=== PATIENT | female | born 1950 | race Caucasian/White ===

== ENCOUNTER 2017-01-12 11:38 | Inpatient (IN) ==
[2017-01-12] MEDS ORDERED: *HR* OxyCODONE/APAP 5/325 TABLET PO ONE ×2 (11:49→14:19)
--- NOTE | 2017-01-12 12:02 | Emergency Department Note ---
Disposition Clinical Impression: Fracture Humerus head fracture Qualifiers: Encounter type: initial encounter Fracture type: closed Laterality: left Qualified Code(s): S42.292A - Other displaced fracture of upper end of left humerus, initial encounter for closed fracture Disposition: Admitted As Inpatient Condition: Good Time of Disposition: 14:05 General Adult HPI - General Chief complaint: ED Fall Stated complaint: fall Time Seen by Provider: 01/12/17 11:45 Source: patient, EMS Limitations: no limitations Nursing Notes Reviewed: Yes Vital Signs Reviewed: Yes - History of Present Illness HPI Narrative: She sustained a mechanical fall today. She denies any loss of consciousness or striking her head. She has no neck or back pain. She is complaining of left shoulder pain as well as left wrist pain left ankle pain. Denies being on any kind of anticoagulants. There are no alleviating or provoking factors. Pain Scale: 9 - Related Data Home Medications Medication Instructions Recorded Confirmed Albuterol Neb [Proventil Neb] 2.5 mg IH Q4HR 01/12/17 01/12/17 Fluticasone/Salmeterol [Advair 1 puff IH BID 01/12/17 01/12/17 500-50 Diskus] Insulin ASPART [NovoLOG] 10 unit SQ TIDWM 01/12/17 01/12/17 Insulin DETEMIR [Levemir] 12 unit SQ HS 01/12/17 01/12/17 Ipratropium Neb [Atrovent Neb] 0.5 mg IH Q6HR PRN 01/12/17 01/12/17 Ipratropium/Albuterol Sulfate 1 puff IH QID PRN 01/12/17 01/12/17 [Combivent Respimat Inhal [place]] PredniSONE [Deltasone] 40 mg PO DAILY 01/12/17 01/12/17 Ranitidine HCl [Acid [place]] 150 mg PO BID 01/12/17 01/12/17 Allergies Allergy/AdvReac Type Severity Reaction Status Date / Time aspirin Allergy Difficulty Verified 11/23/16 16:31 Breathing bacitracin Allergy Rash Verified 01/12/17 16:43 budesonide [From Pulmicort] Allergy Redness of Verified 11/23/16 16:31 Skin Penicillins Allergy Rash Verified 01/12/17 16:43 polymyxin B Allergy Rash Verified 01/12/17 16:43 povidone-iodine Allergy Rash Verified 01/12/17 16:43 [From Betadine] promethazine [From Phenergan] Allergy Confusion Verified 11/23/16 16:31 soap [From Betadine] Allergy Redness of Verified 11/23/16 16:31 Skin Sulfa (Sulfonamide Allergy Rash Verified 11/23/16 16:31 Antibiotics) guaifenesin AdvReac Blurry Verified 01/12/17 16:43 Vision All systems ED: reviewed and negative except as stated. Constitutional: Denies: fever, chills, weakness Eyes: Denies: eye pain, vision change ENT ED: Denies: ear pain, dental pain, epistaxis Cardiovascular: Reports: edema (Chronic lymphedema of lower extremities.). Denies: chest pain, palpitations, dyspnea on exertion, syncope Respiratory: Denies: cough, dyspnea Gastrointestinal: Denies: abdominal pain, nausea, vomiting Genitourinary: Denies: urgency, dysuria, frequency, hematuria Musculoskeletal: Reports: joint swelling (Patient reports left ankle swelling.) , other (Painful left shoulder, left wrist, and left ankle.). Denies: back pain , neck pain Integumentary: Denies: rash, abrasion Neurological: Denies: headache, weakness, numbness, paresthesias Past Medical History - Past Medical History Attestation: Yes The following information was validated with the patient. Medical history: Reports: asthma, diabetes, hyperlipidemia, hypertension, thyroid disease Surgical history: Reports: cataract, cholecystectomy, thyroidectomy Psychiatric history: Reports: no psych history SERVICER history: Reports: other - Social History Smoking Status: Never smoker Smokeless Tobacco Status: No Alcohol use: Reports: none Drug use: Reports: none Physical Exam - General Limitations: no limitations General appearance: alert, in distress (Mild distress due to pain.) - Head Head exam: atraumatic, normocephalic, normal inspection - Eye Eye exam: Present: normal appearance, PERRL, EOMI. Absent: scleral icterus - ENT ENT exam: normal exam, normal oropharynx, mucous membranes moist, normal external ear exam - Neck Neck exam: Present: normal inspection, full ROM, trachea midline. Absent: tenderness, meningismus, lymphadenopathy - Chest Chest inspection: Present: normal inspection, symmetric chest wall rise. Absent : tenderness, rash - Respiratory Respiratory exam: Present: normal lung sounds bilaterally. Absent: respiratory distress - Cardiovascular Cardiovascular exam: Present: regular rate, normal rhythm, normal heart sounds - Abdominal Exam Abdominal exam: Present: soft, Non-Tender, normal bowel sounds. Absent: tenderness, distention, guarding, rebound, rigidity, organomegaly - Expanded Upper Extremity Exam Shoulder exam: Present: tenderness (To left shoulder. On palpation). Absent: swelling, abrasion, ecchymosis, deformity, crepitus, dislocation, erythema Arm exam: Present: normal inspection, full ROM, tenderness (Palpation.). Absent : swelling, abrasion, laceration, ecchymosis, deformity Elbow exam: Present: normal inspection, full ROM. Absent: tenderness, swelling , abrasion, laceration, ecchymosis, deformity, crepitus, erythema Forearm/Wrist exam: Present: normal inspection, full ROM, tenderness (2 palpation and movement). Absent: abrasion, laceration, ecchymosis, deformity, crepitus, erythema Hand exam: Present: normal inspection, full ROM. Absent: tenderness, swelling, abrasion, laceration, ecchymosis, deformity, crepitus - Expanded Lower Extremity Exam Hip/Pelvis exam: Present: normal inspection, full ROM Upper leg exam: Present: normal inspection, full ROM Knee exam: Present: normal inspection, full ROM Lower leg exam: Present: normal inspection, full ROM Ankle exam: Present: normal inspection, full ROM, tenderness, other (Patient has severe lymphedema to both lower extremities. There is no increase in swelling to the left side versus the right. There is pain in her left ankle.). Absent: swelling (Palpation), abrasion, laceration, ecchymosis, deformity, crepitus, dislocation, erythema, tenderness over talofibular lig, anterior draw sign Foot/toe exam: Present: normal inspection, full ROM Neurovascular/Tendon exam: Absent: motor deficit, sensory deficit, tendon deficit - Back Exam Back exam: Present: normal inspection, full ROM. Absent: tenderness, CVA tenderness (R), CVA tenderness (L), paraspinal tenderness, vertebral tenderness - Neurological Exam Neurological exam: Present: alert, oriented X3. Absent: motor sensory deficit - Psychiatric Psychiatric exam: Present: normal affect, normal mood - Skin Skin exam: Present: warm, dry, intact, normal color. Absent: rash, cyanosis, erythema Course Course Narrative: Female patient resting Bailee Marc by EMS. She states that she had a mechanical fall this morning. She was walking on her porch she noticed one of the boards had come up on the porch and she tripped over it. She fell and struck her left shoulder and left hand and left ankle. She denies striking her head. She has no head or neck pain. She is not on anticoagulation. There is no loss of consciousness. There are no external signs of trauma. There is no crepitus or deformity to any of her extremities. She does report pain to her left shoulder left wrist and left ankle. She has full motion of both of her hips without pain on palpation or pain to movement. We will x-ray her left shoulder left forearm left humerus and left hand as well as her left ankle. She does have bilateral lymphedema that she states is chronic. I do not notice a significance of increased swelling of one ankle versus the other. She has strong pedal pulses bilaterally. She has strong radial pulses bilaterally. Her lung sounds are clear her abdomen is soft and nontender. She has no trauma to her head or neck. There is no pain on palpation of either of these. She is acting appropriately and in mild distress due to the pain that she reports in her shoulder. We will give her pain medication while she is here and x-ray her extremities. - Reevaluation(s) Reevaluation #1: Patient has an acute fracture of her medial malleolus and lateral malleolus of her left ankle. She also has acute fracture left humerus that is nondisplaced impacted of her left humeral head. We have consulted Dr. Butler. We will admit patient. She states she is in no pain when she is not moving her shoulder. She is comfortable at this time. She is agreeable to admission. Time: 14:03 - Consultations Consultation #1: Spoke with Dr Ocasio. He advises to splint the patient and admit her to medicine. He states he will see her for her humeral fracture and talk to Dr. napoles about her ankle fracture. Time: 14:02 Vital Signs Temperature 97.6 F 01/12/17 11:42 Pulse Rate 65 01/12/17 11:42 Respiratory Rate 18 01/12/17 11:42 Blood Pressure 108/95 01/12/17 11:42 O2 Sat by Pulse Oximetry 99 01/12/17 11:42 Temperature 97.4 F L 01/12/17 16:24 Pulse Rate 73 01/12/17 16:24 Respiratory Rate 18 01/12/17 18:45 Blood Pressure 110/64 01/12/17 16:24 O2 Sat by Pulse Oximetry 95 01/12/17 18:45 Oxygen Delivery Oxygen Delivery Room Air Medical Decision Making - Medical Records Medical records reviewed: Yes I reviewed the patient's medical records. - Lab Data Result diagrams: 01/12/17 18:34 01/12/17 18:34 - Radiology Data Radiology results reviewed: Yes I reviewed the patient's radiology results. Attestation Statement - Attestation Attestation: I examined this patient and my medical decision-making was reviewed with the CYCLE LIAISON/PA/Advanced Practice Nurse/Resident Physician. I agree with the documented findings, disposition and treatment plan as described except to the extent set forth below. 58-year-old female presents ED because of injuries from a fall. She had a mechanical fall landing on her left side injuring her shoulder and ankle. Complains of pain mostly in the shoulder and ankle. No injury to her head or neck. No chest or abdominal pain. No loss of consciousness. No dyspnea. Pleasant female in no apparent distress. She is uncomfortable with moderate pain. Oropharynx is clear. Trachea midline chest is clear to auscultation bilateral. Neck is nontender to palpation. Abdomen soft non-distended, non- tender. Pelvis is stable and nontender. She has moderate tenderness along the proximal left humerus as well as the medial and lateral malleolus of the left ankle. Dorsal pedal pulses are intact. X-rays reveal fracture of the left lateral and medial malleolus of left ankle. She also has a fracture of the proximal left humerus. There are no other history of findings. She will be unable to bear weight on the left ankle and will likely require surgical repair. However, she is unable to use other means of ambulation due to left humerus fracture. The decision was made to admit her to the hospital for surgical correction of the ankle and probable placement into an extended care facility until she can regain ambulation.
[2017-01-12] MEDS ORDERED: *HR* HYDROmorphone (PF) 1 MG/ML SYRINGE IVP PRN (16:44)
[2017-01-12] MEDS ORDERED: Naloxone 0.4 MG/ML INJ IVP PRN (16:44)
[2017-01-12] MEDS ORDERED: Ondansetron 4 MG/2 ML VIAL IVP PRN (16:44)
[2017-01-12] MEDS ORDERED: Dextrose Gel 15 GM PO PRN ×2 (16:48)
[2017-01-12] MEDS ORDERED: D5% in Water 1,000 ML IV PRN (16:48)
[2017-01-12] MEDS ORDERED: *HR* Dextrose 50 % in Water (Syg) 50 ML SYRINGE IVP PRN (16:48)
--- NOTE | 2017-01-12 16:53 | Internal Med History&Physical ---
Date of Encounter: 01/12/17 Time of Encounter: 15:45 Internal Medicine - H&P: HPI Chief complaint: left shoulder and left ankle pain, nausea after a mechanical fall. Admitted From: Emergency Dept Plans for Post Hospital Care: Transfer [facility] Facility History of present illness: Ms. Gu is a 66 year old female wit medical history significant for chronic corticosteroid use due to severe asthma, resultant osteoporosis, multiple orthopedic procedure due to osteopenia-related fractures, chronic bilateral lympedema, hyperparathyroidism, presents with left shoulder and ankle pain after a mechanical fall. XR confirm, transmaleolar fracture of left ankle and impacted proximal femoral fracture. No neck/back pain pain, no loss of consciousness, no headaches, she did no hit her head, no retrograde or anterograde amnesia, no blurry vision or visual loss, no epistaxis, or bleeding from any orifice. She nausea reports nausea after receiving oxycodone for pain control. She is not on anticoagulation. She is FULL CODE as per discussion, but does not want to be maintained in chronic vegetative state. She nominates her daughter, Francheska Fairbanks ([phone]) as her NOK/POA. ROS: A 10 point ROS was performed. see HPI. Positives and relevant negatives are detailed, system-symptom not mention assumed negative unless otherwise stated. Family history: Father: DM2/CVA, mother: DM2/ atrial fibrillation, TIA/HTN, bother: lung cancer, daughter: fibromyalgia, DM2, epilepsy, obesity, HTN. Vital Signs Temperature 97.6 F 01/12/17 11:42 Pulse Rate 65 01/12/17 11:42 Respiratory Rate 18 01/12/17 11:42 Blood Pressure 108/95 01/12/17 11:42 O2 Sat by Pulse Oximetry 99 01/12/17 11:42 Temperature 97.6 F 01/12/17 11:42 Pulse Rate 72 01/12/17 14:30 Respiratory Rate 18 01/12/17 14:30 Blood Pressure 134/80 01/12/17 14:30 O2 Sat by Pulse Oximetry 97 01/12/17 14:30 In mild distress from pain, not ill or toxic looking. left shoulder in a sling Not pale, anicteric, afebrile, acyanotic. Moist mucosa, no JVD HEENT: No JVD, no cervical lymphadenopathy, Chest : CTAB Heart: RRR, HS1/2, no m/r/g. Abdomen: soft, non-tender, no guarding, no rebound, no masses, BS+ : no suprapubic tenderness. 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 Skin: no active skin lesion Extremities: Left lower extremity in a below knee splint, she is able to wriggle toes of left foot, good capillary, left arm in a sling, strapped across chest. She is able to wriggle the fingers of the left hand. Non-pitting pedal edema of right lower leg (lymphedema)- no calf tenderness in same leg, left lower leg in a splint. LABS: Not done Skeletal survey: impacted proximal humeral fracture (left humerus), transmaleolar fracture (left ankle). old ORIF to right wrist. IMP Mechanical fall Impacted proximal left humeral fracture Trans-maleolar fracture of left ankle. Chronic morbidities Osteopenia/osteoporosis, related to chronic corticosteroid use. Asthma/COPD, moderate-severe intermittent Corticosteroid dependence Hyperparathyroidism DM2 on insulin Chronic lymphedema of lower extremities. PLAN Admit to [facility] Optimal pain control Consult hand surgeon and crystal report developer Continue medication of chronic orbidities DVT/GI prophylaxis Consult PT/OT and social sciences professor. I discussed my assessment with the patient, her daughter was at bedside, they verbalized understanding and are agreeable to admission. Hospitalization required due to acute fractures. She will need placement for rehabilitation Past Med Surg Social Fam HX - Past Medical History Medical history: asthma, diabetes, hyperlipidemia, hypertension, thyroid disease Psychiatric history: no psych history - Past Surgical History Surgical History: cataract, cholecystectomy, thyroidectomy - Social History Smoking Status: Never smoker Smokeless Tobacco Status: No Alcohol use: none Drug use: none Internal Medicine - H&P: Meds Albuterol Neb [Proventil Neb] 2.5 mg IH Q4HR 01/12/17 [History] Fluticasone/Salmeterol [Advair 500-50 Diskus] 1 puff IH BID 01/12/17 [History] Insulin ASPART [NovoLOG] 10 unit SQ TIDWM 01/12/17 [History] Insulin DETEMIR [Levemir] 12 unit SQ HS 01/12/17 [History] Ipratropium Neb [Atrovent Neb] 0.5 mg IH Q6HR PRN 01/12/17 [History] Ipratropium/Albuterol Sulfate [Combivent Respimat Inhal [place]] 1 puff IH QID PRN 01/12/17 [History] PredniSONE [Deltasone] 40 mg PO DAILY 01/12/17 [History] Ranitidine HCl [Acid Munitions Handler Supervisor] 150 mg PO BID 01/12/17 [History] Allergies aspirin Allergy (Verified 11/23/16 16:31) Difficulty Breathing bacitracin Allergy (Verified 01/12/17 16:43) Rash budesonide [From Pulmicort] Allergy (Verified 11/23/16 16:31) Redness of Skin Penicillins Allergy (Verified 01/12/17 16:43) Rash polymyxin B Allergy (Verified 01/12/17 16:43) Rash povidone-iodine [From Betadine] Allergy (Verified 01/12/17 16:43) Rash promethazine [From Phenergan] Allergy (Verified 11/23/16 16:31) Confusion soap [From Betadine] Allergy (Verified 11/23/16 16:31) Redness of Skin Sulfa (Sulfonamide Antibiotics) Allergy (Verified 11/23/16 16:31) Rash guaifenesin Adverse Reaction (Verified 01/12/17 16:43) Blurry Vision All Systems PM: A 10-system review of systems was performed and is negative for pertinent findings except as documented above in the HPI. - Constitutional Vitals: Temp Pulse Resp BP Pulse Ox 97.4 F L 73 18 110/64 93 L 01/12/17 16:24 01/12/17 16:24 01/12/17 16:24 01/12/17 16:24 01/12/17 16:24
[2017-01-12 18:42] LABS: Basophils # 0.1 K/mcL (0.0-0.2); Basophils % 0.3 %; Eosinophils # 0.1 K/mcL (0.0-0.6); Eosinophils % 0.3 %; Hematocrit 43.9 % (35.3-44.9); Hemoglobin 14.1 g/dL (11.5-15.4); Immature Granulocytes % 0.4 % (0-4); Immature Platelets 3.5 % (1.1-6.1); Lymphocytes % 6.5 %; Mean Corpuscular HGB Conc 32.1 g/dL (31.6-35.5); Mean Corpuscular Hemoglobin 30.7 pg (28.0-33.3); Mean Corpuscular Volume 95.4 fL (83.0-100.0); Monocytes % 6.6 %; Neutrophils # 12.5 K/mcL (1.6-8.9); Platelet Count 217 K/mcL (140-400); Red Cell Distribution Width 13.1 % (11.5-14.5); Segmented Neutrophils % 85.9 %
[2017-01-12] MEDS: Ipratropium/Albuterol Neb 3 ML IH PRN (18:45)
[2017-01-12 18:56] LABS: BUN/Creatinine Ratio 21 (6-26); Blood Urea Nitrogen 14 mg/dL (7-20); Calcium 9.8 mg/dL (8.6-10.8); Carbon Dioxide 20 mEq/L (19-29); Chloride 109 mEq/L (98-109); Glucose 216 mg/dL (70-99); Osmolality,Calculated 293 (280-300); Potassium 4.2 mEq/L (3.5-4.5); Sodium 138 mEq/L (136-145); eGFR For African Americans > 60 (> 60); eGFR For Non-African Americans > 60 (> 60)
[2017-01-12] MEDS: Insulin LISPRO 300 UNITS/3 ML VIAL SQ SCH ×2 (19:53→22:20)
[2017-01-12] MEDS: *HR* OxyCODONE Immed Rel 5 MG TABLET PO PRN (20:00)
[2017-01-12] MEDS: Insulin DETEMIR 100 UNIT/ML X5UNITS SQ SCH (22:20)
[2017-01-12] MEDS: Acetaminophen 325 MG TABLET PO PRN (22:20)
[2017-01-12] MEDS: Famotidine 20 MG TABLET PO SCH (22:20)
[2017-01-12] MEDS: FLUTICASONE IH SCH (22:21)
[2017-01-12] MEDS: SALMETEROL IH SCH (22:21)
[2017-01-13] MEDS: *HR* OxyCODONE Immed Rel 5 MG TABLET PO PRN ×3 (02:01→18:49)
[2017-01-13] MEDS: Ipratropium/Albuterol Neb 3 ML IH PRN ×3 (02:25→21:31)
[2017-01-13] MEDS: Acetaminophen 325 MG TABLET PO PRN ×3 (06:12→21:20)
[2017-01-13] MEDS: *HR* Enoxaparin 40 MG/0.4 ML SYRINGE SQ SCH (06:12)
[2017-01-13] MEDS: FLUTICASONE IH SCH ×2 (08:49→21:15)
[2017-01-13] MEDS: Insulin LISPRO 300 UNITS/3 ML VIAL SQ SCH ×7 (08:49→21:14)
[2017-01-13] MEDS: SALMETEROL IH SCH ×2 (08:49→21:15)
[2017-01-13] MEDS: predniSONE 20 MG TABLET PO SCH (08:50)
[2017-01-13] MEDS: Famotidine 20 MG TABLET PO SCH ×2 (08:50→21:14)
--- NOTE | 2017-01-13 16:43 | Orthopedic Consult Note ---
Date of Encounter: 01/13/17 Time of Encounter: 12:45 Assessment and Plan (1) Humerus head fracture Current Visit: Yes Status: Acute Fracture is non-operative at this time. Continue in sling with no shoulder motion and NWB to LUE. Continue pain control per hospitalist. Dr. Goss will not be doing surgery on the left ankle fracture. Refer to his note for further management. Patient is to follow up with sport medicine in [facility] office in 1 week for the left humerus and left ankle fractures. Qualifiers: Encounter type: initial encounter Fracture type: closed Laterality: left Qualified Code(s): S42.292A - Other displaced fracture of upper end of left humerus, initial encounter for closed fracture History of Present Illness Chief complaint: left arm pain HPI: Ms. Gu is a 66 year old female who presented to the ER yesterday after a fall. She tripped on a board on her deck and landed on her left side. She had immediate pain in her left arm and left ankle. Pain currently is 0/10 but has pain meds on board. Denies any n/t in extremities. Pain worse with motion. Denies hitting her head and denies LOC. Denies chest pain, SOB, fever. Past Med Surg Social Fam HX - Past Medical History Medical history: asthma, diabetes, hyperlipidemia, hypertension, thyroid disease Psychiatric history: no psych history - Past Surgical History Surgical History: cataract, cholecystectomy, thyroidectomy - Social History Smoking Status: Never smoker Smokeless Tobacco Status: No Alcohol use: none Drug use: none Medications and Allergies Albuterol Neb [Proventil Neb] 2.5 mg IH Q4HR 01/12/17 [History] Fluticasone/Salmeterol [Advair 500-50 Diskus] 1 puff IH BID 01/12/17 [History] Insulin ASPART [NovoLOG] 10 unit SQ TIDWM 01/12/17 [History] Insulin DETEMIR [Levemir] 12 unit SQ HS 01/12/17 [History] Ipratropium Neb [Atrovent Neb] 0.5 mg IH Q6HR PRN 01/12/17 [History] Ipratropium/Albuterol Sulfate [Combivent Respimat Inhal [place]] 1 puff IH QID PRN 01/12/17 [History] PredniSONE [Deltasone] 40 mg PO DAILY 01/12/17 [History] Ranitidine HCl [Acid Condenser Operator] 150 mg PO BID 01/12/17 [History] Allergies aspirin Allergy (Verified 11/23/16 16:31) Difficulty Breathing bacitracin Allergy (Verified 01/12/17 16:43) Rash budesonide [From Pulmicort] Allergy (Verified 11/23/16 16:31) Redness of Skin Penicillins Allergy (Verified 01/12/17 16:43) Rash polymyxin B Allergy (Verified 01/12/17 16:43) Rash povidone-iodine [From Betadine] Allergy (Verified 01/12/17 16:43) Rash promethazine [From Phenergan] Allergy (Verified 11/23/16 16:31) Confusion soap [From Betadine] Allergy (Verified 11/23/16 16:31) Redness of Skin Sulfa (Sulfonamide Antibiotics) Allergy (Verified 11/23/16 16:31) Rash guaifenesin Adverse Reaction (Verified 01/12/17 16:43) Blurry Vision All Systems Reviewed: A 10-system review of systems was performed and is negative for pertinent findings except as documented above in the HPI. - Constitutional Constitutional: as per HPI - Cardiovascular Cardiovascular: as per HPI - Respiratory Respiratory: as per HPI - Musculoskeletal Musculoskeletal: as per HPI Physical Exam - Constitutional Vitals: Temp Pulse Resp BP Pulse Ox 98.0 F 66 16 133/68 97 01/13/17 15:20 01/13/17 15:20 01/13/17 15:20 01/13/17 15:20 01/13/17 15:20 - Shoulder left Appearance shoulder: other (sling in place, mild swelling. shoulder motion restricted. Good motion of hand and wrist. NV intact) Results - Labs Result Diagrams: 01/13/17 04:20 01/12/17 18:34 Labs: Abnormal lab results WBC 14.6 K/mcL (4.3-11.1) H 01/12/17 18:34 Neutrophils # 12.5 K/mcL (1.6-8.9) H 01/12/17 18:34 Glucose 216 mg/dL (70-99) H 01/12/17 18:34 POC Glucose 146 (58-89) H 01/13/17 11:21 H & H 01/12/17 01/13/17 Range/Units 18:34 04:20 Hgb 14.1 12.8 (11.5-15.4) g/dL Hct 43.9 (35.3-44.9) % All other labs normal. - Diagnostic results Shoulder x-ray: report reviewed, image reviewed (humerus xrays showed non- displaced impacted fracture of humeral head) Consult Discharge Plan - Plan Referrals: Gera Nassar DO [Primary Care Provider] - - Attending Attestation Case and plan of care discussed with supervising physician who was available for all aspects of care.
--- NOTE | 2017-01-13 17:14 | Internal Med Progress Note ---
Date of Encounter: 01/13/17 Time of Encounter: 17:13 - Assessment and plan (1) Fracture of left ankle Current Visit: Yes Status: Acute Assessment and plan: Dr. Goss will not be doing surgery on the left ankle fracture. Refer to his note for further management. Patient is to follow up with sport medicine in [facility] office in 1 week for the left humerus and left ankle fractures. Qualifiers: Encounter type: initial encounter Qualified Code(s): S82.892A - Other fracture of left lower leg, initial encounter for closed fracture (2) Asthma Current Visit: Yes Status: Acute Assessment and plan: well controled for now, continue home meds Qualifiers: Asthma severity: unspecified severity Asthma complication type: uncomplicated Qualified Code(s): J45.909 - Unspecified asthma, uncomplicated (3) Diabetes Current Visit: Yes Status: Acute Assessment and plan: fsg well controlled, continue home dose of insulin Qualifiers: Diabetes mellitus type: type 2 Qualified Code(s): E11.9 - Type 2 diabetes mellitus without complications (4) Lymphedema Current Visit: Yes Status: Acute Assessment and plan: chronic lymphedema, will give stockings. (5) Humerus head fracture Current Visit: Yes Status: Acute Assessment and plan: Fracture is non-operative at this time. Continue in sling with no shoulder motion and NWB to LUE as per ortho. DVt prophylaxis. pain control Qualifiers: Encounter type: initial encounter Fracture type: closed Laterality: left Qualified Code(s): S42.292A - Other displaced fracture of upper end of left humerus, initial encounter for closed fracture - Time Spent With Patient 25 - 35 minutes - Subjective Interval history: Patient seen at the bedside, admitted for left humerus and left ankle fracture. Seen by orthopedics, nonoperative as per orders to. Patient follow up with sports medicine in 1 week as outpatient. - Constitutional Vitals: Temp Pulse Resp BP Pulse Ox 98.0 F 66 16 133/68 97 01/13/17 15:20 01/13/17 15:20 01/13/17 15:20 01/13/17 15:20 01/13/17 15:20 General appearance: Present: mild distress, A&O X 3 Exam: In mild distress from pain, left shoulder in a sling Not pale, anicteric, afebrile, acyanotic. Moist mucosa, no JVD HEENT: No JVD, no cervical lymphadenopathy, Chest : CTAB Heart: RRR, HS1/2, no m/r/g. Abdomen: soft, non-tender, no guarding, no rebound, no masses, BS+ : no suprapubic tenderness. RED HAT LINUX ADMINISTRATOR: AAO x 3, no focal neurological deficits. Skin: no active skin lesion Extremities: Left lower extremity in a below knee splint, she is able to wriggle toes of left foot, good capillary, left arm in a sling, strapped across chest. She is able to wriggle the fingers of the left hand. Non-pitting pedal edema of right lower leg (lymphedema)- no calf tenderness in same leg, left lower leg in a splint. Internal Medicine: Result - Labs CBC & Chem 7: 01/13/17 04:20 01/12/17 18:34 Labs: Short CBC 01/12/17 01/13/17 Range/Units 18:34 04:20 WBC 14.6 H (4.3-11.1) K/mcL Hgb 14.1 12.8 (11.5-15.4) g/dL Hct 43.9 (35.3-44.9) % Plt Count 217 (140-400) K/mcL Neutrophils # 12.5 H (1.6-8.9) K/mcL BMP 01/12/17 18:34 Sodium 138 Potassium 4.2 Chloride 109 Carbon Dioxide 20 BUN 14 Creatinine 0.66 Glucose 216 H Calcium 9.8 - Impressions Impressions Ankle CT 01/13/17 09:38 IMPRESSION: Findings suggest acute traumatic nondisplaced to minimally displaced fractures of the distal tibia and fibula superimposed on remote healed fracture deformities. This includes a minimally impacted fracture of the distal tibia/medial malleolar base, nondisplaced posterior malleolar fracture and minimally displaced lateral malleolar fracture. No evidence of widening of the ankle mortise. Associated tibiotalar joint effusion and periarticular soft tissue edema. D/ / 01/13/2017 11:01:32 Samuel Foley MD / veronika Interpreting Provider: Samuel Foley MD Consult Discharge Plan - Plan Referrals: Gera Nassar DO [Primary Care Provider] -
--- NOTE | 2017-01-13 20:23 | Podiatry Consult Note ---
Date of Encounter: 01/13/17 Time of Encounter: 10:20 Assessment and Plan (1) Fracture of left ankle Current visit: Yes Status: Acute After reviewing the radiographs it was difficult to determine exactly how bad the fracture was so a CT was ordered which demonstrates no widening of the ankle mortise. The decision to avoid surgery was made due to minimal displacement and a congruent ankle mortise. The patient will likely need to go to a facility for care. The patient will need to ice and elevate. The patient will need to remain completely non-weightbearing to the left ankle. The patient can follow up with sports med. The patient will need to continue a posterior splint until she follows up in sports medicine. At that time the patient will likely need a cast. Qualifiers: Encounter type: initial encounter Qualified Code(s): S82.892A - Other fracture of left lower leg, initial encounter for closed fracture History of Present Illness Chief complaint: left ankle fracture HPI: Ms. Gu is a 66 year old female who presents with an ankle fracture. Patient relates significant pain. Past Med Surg Social Fam HX - Past Medical History Medical history: asthma, diabetes, hyperlipidemia, hypertension, thyroid disease Psychiatric history: no psych history - Past Surgical History Surgical History: cataract, cholecystectomy, thyroidectomy - Social History Smoking Status: Never smoker Smokeless Tobacco Status: No Alcohol use: none Drug use: none Medications and Allergies Albuterol Neb [Proventil Neb] 2.5 mg IH Q4HR 01/12/17 [History] Fluticasone/Salmeterol [Advair 500-50 Diskus] 1 puff IH BID 01/12/17 [History] Insulin ASPART [NovoLOG] 10 unit SQ TIDWM 01/12/17 [History] Insulin DETEMIR [Levemir] 12 unit SQ HS 01/12/17 [History] Ipratropium Neb [Atrovent Neb] 0.5 mg IH Q6HR PRN 01/12/17 [History] Ipratropium/Albuterol Sulfate [Combivent Respimat Inhal [place]] 1 puff IH QID PRN 01/12/17 [History] PredniSONE [Deltasone] 40 mg PO DAILY 01/12/17 [History] Ranitidine HCl [Acid Tail Trimmer] 150 mg PO BID 01/12/17 [History] Allergies aspirin Allergy (Verified 11/23/16 16:31) Difficulty Breathing bacitracin Allergy (Verified 01/12/17 16:43) Rash budesonide [From Pulmicort] Allergy (Verified 11/23/16 16:31) Redness of Skin Penicillins Allergy (Verified 01/12/17 16:43) Rash polymyxin B Allergy (Verified 01/12/17 16:43) Rash povidone-iodine [From Betadine] Allergy (Verified 01/12/17 16:43) Rash promethazine [From Phenergan] Allergy (Verified 11/23/16 16:31) Confusion soap [From Betadine] Allergy (Verified 11/23/16 16:31) Redness of Skin Sulfa (Sulfonamide Antibiotics) Allergy (Verified 11/23/16 16:31) Rash guaifenesin Adverse Reaction (Verified 01/12/17 16:43) Blurry Vision All Systems Reviewed: A 10-system review of systems was performed and is negative for pertinent findings except as documented above in the HPI. Physical Exam - Constitutional Vitals: Temp Pulse Resp BP Pulse Ox 98.0 F 66 16 133/68 97 01/13/17 15:20 01/13/17 15:20 01/13/17 15:20 01/13/17 15:20 01/13/17 17:12 General appearance: A&O X 3 Exam: radiographic exam demonstrates ankle fracture, bimalleolar. Significant lymphedema noted. CFT intact to the bilateral extremities. No open lesions. Sensation intact to the digits to light touch to the digits. Results - Labs Result Diagrams: 01/13/17 04:20 01/12/17 18:34 Labs: Abnormal lab results WBC 14.6 K/mcL (4.3-11.1) H 01/12/17 18:34 Neutrophils # 12.5 K/mcL (1.6-8.9) H 01/12/17 18:34 Glucose 216 mg/dL (70-99) H 01/12/17 18:34 H & H 01/13/17 Range/Units 04:20 Hgb 12.8 (11.5-15.4) g/dL All other labs normal. Consult Discharge Plan - Plan Referrals: Gera Nassar DO [Primary Care Provider] -
[2017-01-13] MEDS: Insulin DETEMIR 100 UNIT/ML X5UNITS SQ SCH (21:14)
[2017-01-14] MEDS: *HR* OxyCODONE Immed Rel 5 MG TABLET PO PRN ×3 (00:47→22:50)
[2017-01-14] MEDS: *HR* Enoxaparin 40 MG/0.4 ML SYRINGE SQ SCH (06:54)
[2017-01-14] MEDS: Insulin LISPRO 300 UNITS/3 ML VIAL SQ SCH ×7 (07:36→20:52)
[2017-01-14] MEDS: predniSONE 20 MG TABLET PO SCH (08:59)
[2017-01-14] MEDS: Famotidine 20 MG TABLET PO SCH ×2 (08:59→20:51)
[2017-01-14] MEDS: FLUTICASONE IH SCH ×2 (09:02→20:52)
[2017-01-14] MEDS: SALMETEROL IH SCH ×2 (09:02→20:52)
[2017-01-14] MEDS ORDERED: Ipratropium/Albuterol Neb 3 ML IH ONE (12:06)
--- NOTE | 2017-01-14 12:07 | Internal Med Progress Note ---
Date of Encounter: 01/14/17 Time of Encounter: 10:15 - Assessment and plan (1) Asthma Current Visit: Yes Status: Acute Assessment and plan: Wheezing this morning Duonebs stat and q4prn Continue home meds meanwhile Qualifiers: Asthma severity: unspecified severity Asthma complication type: uncomplicated Qualified Code(s): J45.909 - Unspecified asthma, uncomplicated (2) Diabetes Current Visit: Yes Status: Acute Assessment and plan: FS well controlled, continue home dose of insulin Qualifiers: Diabetes mellitus type: type 2 Qualified Code(s): E11.9 - Type 2 diabetes mellitus without complications (3) Fracture of left ankle Current Visit: Yes Status: Acute Assessment and plan: Dr. Goss will not be doing surgery on the left ankle fracture. Refer to his note for further management. Patient is to follow up with sport medicine in [facility] office in 1 week for the left humerus and left ankle fractures. Qualifiers: Encounter type: initial encounter Qualified Code(s): S82.892A - Other fracture of left lower leg, initial encounter for closed fracture (4) Humerus head fracture Current Visit: Yes Status: Acute Assessment and plan: Fracture is non-operative at this time. Continue in sling with no shoulder motion and NWB to LUE as per ortho. DVt prophylaxis. pain control Qualifiers: Encounter type: initial encounter Fracture type: closed Laterality: left Qualified Code(s): S42.292A - Other displaced fracture of upper end of left humerus, initial encounter for closed fracture (5) Lymphedema Current Visit: Yes Status: Acute Assessment and plan: chronic lymphedema, will give stockings. - Subjective Interval history: Initial encounter Being managed for Lt ankle and Left humeral head fracture Per ortho non-operable for now Awaiting ECF placement Wheezing diffusely on exam today, duonebs ordered stat - Constitutional Vitals: Temp Pulse Resp BP Pulse Ox 97.6 F 67 16 112/63 97 01/14/17 10:48 01/14/17 10:48 01/14/17 10:48 01/14/17 10:48 01/14/17 10:48 General appearance: Present: A&O X 3, pleasant, no acute distress - Head Head exam: Present: atraumatic, normocephalic - Eye Eye exam: Present: PERRL, conjuntiva pink, sclera anicteric Pupils: Present: PERRL - Neck Neck exam general surgery: Present: supple, trachea midline. Absent: lymphadenopathy - Respiratory Respiratory exam: Present: wheezes. Absent: rhonchi, tachypnea - Cardiovascular Cardiovascular exam: Present: RRR, +S1, +S2. Absent: diastolic murmur, gallop, rubs, systolic murmur - GI/Abdominal GI/Abdominal exam: Present: normal bowel sounds, soft, no peritoneal signs. Absent: distended, tenderness - Extremities Exam Extremities exam: Present: pedal edema, warm, radial pulses palpable and symetrical. Absent: calf tenderness, cyanotic Additional comments: Left lower extremity in a below knee splint, she is able to wriggle toes of left foot, good capillary, left arm in a sling, strapped across chest. She is able to wriggle the fingers of the left hand. Non-pitting pedal edema of right lower leg (lymphedema)- no calf tenderness in same leg, left lower leg in a splint. - Neurological Exam Neurological exam: Present: alert, CN II-XII intact, oriented X3, no focal deficits. Absent: pronater drift, facial droop, speech deficit - Skin Skin exam: Present: dry, intact Internal Medicine: Result - Labs CBC & Chem 7: 01/13/17 04:20 01/12/17 18:34 Consult Discharge Plan - Plan Referrals: Gera Nassar DO [Primary Care Provider] - Miah Whitfield MD [Partnered Physician] - 01/21/17 11:10 am
[2017-01-14] MEDS: Insulin DETEMIR 100 UNIT/ML X5UNITS SQ SCH (20:52)
[2017-01-15] MEDS ORDERED: Lactulose Oral Soln 20 GM/30 ML UDC PO PRN (00:08)
[2017-01-15] MEDS ORDERED: MOM Conc 10 ML UD.LIQ PO PRN (00:09)
[2017-01-15] MEDS: Acetaminophen 325 MG TABLET PO PRN ×2 (00:17→13:52)
[2017-01-15] MEDS: *HR* Enoxaparin 40 MG/0.4 ML SYRINGE SQ SCH (06:23)
[2017-01-15] MEDS: predniSONE 20 MG TABLET PO SCH (08:37)
[2017-01-15] MEDS: Famotidine 20 MG TABLET PO SCH (08:37)
[2017-01-15] MEDS: FLUTICASONE IH SCH (08:38)
[2017-01-15] MEDS: SALMETEROL IH SCH (08:38)
[2017-01-15] MEDS: Insulin LISPRO 300 UNITS/3 ML VIAL SQ SCH ×4 (08:39→13:54)
--- NOTE | 2017-01-15 08:49 | Physician Discharge Referral ---
ExtendedCare Referral Info Transfer To: SNF/ECF Provider in Charge after Transfer: PCP Institutional Level of Care: Skilled - Diagnosis (1) Asthma Priority: Secondary Status: Chronic (2) Diabetes Priority: Secondary Status: Chronic (3) Fracture of left ankle Priority: Primary Status: Acute (4) Humerus head fracture Priority: Primary Status: Acute (5) Lymphedema Priority: Secondary Status: Chronic Prognosis: Good Aware of Diagnosis: Patient Aware of Prognosis: Patient - Transfer Medications Prescriptions: OxyCODONE Immed Rel [Roxicodone 5 MG] 5 mg PO Q6HR PRN #15 tablet PRN Reason: Moderate Pain (4-6) Home Medications: Albuterol Neb [Proventil Neb] 2.5 mg IH Q4HR 01/12/17 [History] Fluticasone/Salmeterol [Advair 500-50 Diskus] 1 puff IH BID 01/12/17 [History] Insulin ASPART [NovoLOG] 10 unit SQ TIDWM 01/12/17 [History] Insulin DETEMIR [Levemir] 12 unit SQ HS 01/12/17 [History] Ipratropium Neb [Atrovent Neb] 0.5 mg IH Q6HR PRN 01/12/17 [History] Ipratropium/Albuterol Sulfate [Combivent Respimat Inhal [place]] 1 puff IH QID PRN 01/12/17 [History] PredniSONE [Deltasone] 40 mg PO DAILY 01/12/17 [History] Ranitidine HCl [Acid Trolley Operator] 150 mg PO BID 01/12/17 [History] Acetaminophen [Tylenol] 650 mg PO Q6HR PRN #0 tablet 01/15/17 [Rx] Cyclobenzaprine [Flexeril] 10 mg PO TID PRN #0 tablet 01/15/17 [Rx] MOM Conc [MILK OF MAGNESIA conc] 10 ml PO BID PRN #0 ud.liq 01/15/17 [Rx] OxyCODONE Immed Rel [Roxicodone 5 MG] 5 mg PO Q6HR PRN #15 tablet 01/15/17 [Rx] Allergies/Adverse Reactions: Allergies aspirin Allergy (Verified 11/23/16 16:31) Difficulty Breathing bacitracin Allergy (Verified 01/12/17 16:43) Rash budesonide [From Pulmicort] Allergy (Verified 11/23/16 16:31) Redness of Skin Penicillins Allergy (Verified 01/12/17 16:43) Rash polymyxin B Allergy (Verified 01/12/17 16:43) Rash povidone-iodine [From Betadine] Allergy (Verified 01/12/17 16:43) Rash promethazine [From Phenergan] Allergy (Verified 11/23/16 16:31) Confusion soap [From Betadine] Allergy (Verified 11/23/16 16:31) Redness of Skin Sulfa (Sulfonamide Antibiotics) Allergy (Verified 11/23/16 16:31) Rash guaifenesin Adverse Reaction (Verified 01/12/17 16:43) Blurry Vision - Respiratory Orders Smoking Cessation: Smoking cessation has been advised. For more information, call the [place] Tobacco Quit Line at 4-340-EHCT-NOW. - Advance Directives Code Status: Full Code - Mobility Orders Ambulate - Rehabiliation Orders Rehab Potential: Good - Diet Orders No Concentrated Sweets, Cardiac CERTIFICATION: I certify that the transfer of the above named patient to an Extended Care Facility is necessary for the continuing treatment of the diagnosis listed. The above information is true and accurate reflection of patient's current condition. Confidential - Redisclosure prohibited without a patient's written consent.
--- NOTE | 2017-01-15 08:49 | Discharge Summary ---
Date of Encounter: 01/15/17 Time of Encounter: 08:49 - Discharge Diagnosis (1) Asthma Priority: Secondary Status: Chronic Qualifiers: Asthma severity: unspecified severity Asthma complication type: uncomplicated Qualified Code(s): J45.909 - Unspecified asthma, uncomplicated (2) Diabetes Priority: Secondary Status: Chronic Qualifiers: Diabetes mellitus type: type 2 Qualified Code(s): E11.9 - Type 2 diabetes mellitus without complications (3) Fracture of left ankle Priority: Primary Status: Acute Qualifiers: Encounter type: initial encounter Fracture type: closed Qualified Code(s) : S82.892A - Other fracture of left lower leg, initial encounter for closed fracture (4) Humerus head fracture Priority: Primary Status: Acute Qualifiers: Encounter type: initial encounter Fracture type: closed Laterality: left Qualified Code(s): S42.292A - Other displaced fracture of upper end of left humerus, initial encounter for closed fracture (5) Lymphedema Priority: Secondary Status: Chronic - Discharge Medications Prescriptions: OxyCODONE Immed Rel [Roxicodone 5 MG] 5 mg PO Q6HR PRN #15 tablet PRN Reason: Moderate Pain (4-6) Home Medications: Albuterol Neb [Proventil Neb] 2.5 mg IH Q4HR 01/12/17 [History] Fluticasone/Salmeterol [Advair 500-50 Diskus] 1 puff IH BID 01/12/17 [History] Insulin ASPART [NovoLOG] 10 unit SQ TIDWM 01/12/17 [History] Insulin DETEMIR [Levemir] 12 unit SQ HS 01/12/17 [History] Ipratropium Neb [Atrovent Neb] 0.5 mg IH Q6HR PRN 01/12/17 [History] Ipratropium/Albuterol Sulfate [Combivent Respimat Inhal [place]] 1 puff IH QID PRN 01/12/17 [History] PredniSONE [Deltasone] 40 mg PO DAILY 01/12/17 [History] Ranitidine HCl [Acid Aquaculture Director] 150 mg PO BID 01/12/17 [History] Acetaminophen [Tylenol] 650 mg PO Q6HR PRN #0 tablet 01/15/17 [Rx] Cyclobenzaprine [Flexeril] 10 mg PO TID PRN #0 tablet 01/15/17 [Rx] MOM Conc [MILK OF MAGNESIA conc] 10 ml PO BID PRN #0 ud.liq 01/15/17 [Rx] OxyCODONE Immed Rel [Roxicodone 5 MG] 5 mg PO Q6HR PRN #15 tablet 01/15/17 [Rx] Allergies/Adverse Reactions: Allergies aspirin Allergy (Verified 11/23/16 16:31) Difficulty Breathing bacitracin Allergy (Verified 01/12/17 16:43) Rash budesonide [From Pulmicort] Allergy (Verified 11/23/16 16:31) Redness of Skin Penicillins Allergy (Verified 01/12/17 16:43) Rash polymyxin B Allergy (Verified 01/12/17 16:43) Rash povidone-iodine [From Betadine] Allergy (Verified 01/12/17 16:43) Rash promethazine [From Phenergan] Allergy (Verified 11/23/16 16:31) Confusion soap [From Betadine] Allergy (Verified 11/23/16 16:31) Redness of Skin Sulfa (Sulfonamide Antibiotics) Allergy (Verified 11/23/16 16:31) Rash guaifenesin Adverse Reaction (Verified 01/12/17 16:43) Blurry Vision Procedures/tests Complete & Pending: Procedures Performed prior 72 hours Category Date Time Status CT ankle LT wo con [CT] Stat Cat Scan 01/13/17 09:38 Completed Date of admission: 01/12/17 16:54 Primary care physician: Gera Nassar DO Discharging clinician: Naman Drew Anticipated date of discharge: 01/15/17 - Patient Status Disposition: Transfer SNF Condition: Good Functional capacity at discharge: wheelchair bound Overall status at discharge: patient is progressing back to baseline - Discharge Instructions Follow Up With: Gera Nassar DO [Primary Care Provider] - Miah Whitfield MD [Partnered Physician] - 01/21/17 11:10 am - Diet and Activity Activity: as per physical therapy Diet: diabetic diet, low salt diet Interval History: Ms. Gu is a 66 year old female wit medical history significant for chronic corticosteroid use due to severe asthma, resultant osteoporosis, multiple orthopedic procedure due to osteopenia-related fractures, chronic bilateral lympedema, hyperparathyroidism, presents with left shoulder and ankle pain after a mechanical fall. XR confirmed transmaleolar fracture of left ankle and impacted proximal femoral fracture. No neck/back pain pain, no loss of consciousness, no headaches, she did no hit her head, no retrograde or anterograde amnesia, no blurry vision or visual loss, no epistaxis, or bleeding from any orifice. She nausea reports nausea after receiving oxycodone for pain control. She is not on anticoagulation. Hospital course: She was admitted for management of Mechanical fall, Impacted proximal left humeral fracture, Trans-maleolar fracture of left ankle. Orthopedics was consulted and pain management was started Recommendations were that humeral head fracture is non-operative at this time. Continue in sling with no shoulder motion and NWB to LUE as per ortho. Follow up in one week in bone clinic. Patient's home medications were resumed She is seen at bedside today, has no new complains, reports good control of pain , is able to tolerate physical therapy. Physical exam is as documented Her other Chronic dh-zqxycfilrit-Rkdhlyfhjf/osteoporosis, related to chronic corticosteroid use.Asthma/COPD, moderate-severe intermittent, Corticosteroid dependence, Hyperparathyroidism, DM2 on insulin, Chronic lymphedema of lower extremities were stable, continue home meds PT/OT review recommends physical therapy in-patient Patient is stable for transfer to SNF Patient is to follow up with sport medicine in [facility] office in 1 week for the left humerus and left ankle fractures. Plan of care is discussed, verbalized understanding. Immunization is up to date - Time Spent with Patient Total time spent providing and/or coordinating discharge services: Less than 30 minutes - Constitutional Vitals: Temp Pulse Resp BP Pulse Ox 97.8 F 65 16 135/77 93 L 01/15/17 06:35 01/15/17 06:35 01/15/17 06:35 01/15/17 06:35 01/15/17 06:35 General appearance: Present: A&O X 3, pleasant, no acute distress, obese - Head Head exam: Present: atraumatic, normocephalic - Eye Eye exam: Present: PERRL, conjuntiva pink, sclera anicteric Pupils: Present: PERRL - ENT ENT exam: Present: mucous membranes moist - Neck Neck exam general surgery: Present: normal inspection - Respiratory Respiratory exam: Present: CTAB. Absent: rales, wheezes - Cardiovascular Cardiovascular exam: Present: RRR, +S1, +S2. Absent: +S3, systolic murmur - GI/Abdominal GI/Abdominal exam: Present: normal bowel sounds, soft, no peritoneal signs. Absent: distended, tenderness - Extremities Exam Additional comments: Left lower extremity in a below knee splint, she is able to wriggle toes of left foot, good capillary, left arm in a sling, strapped across chest. She is able to wriggle the fingers of the left hand. Non-pitting pedal edema of right lower leg (lymphedema)- no calf tenderness in same leg, left lower leg in a splint. - Neurological Exam Neurological exam: Present: alert, CN II-XII intact, oriented X3, no focal deficits. Absent: pronater drift, facial droop, speech deficit - Skin Skin exam: Present: dry, intact
[2017-01-15 11:48] VITALS: BP 124/74
== END 2017-01-15 16:00 | DRG 562 ==
LOC: 3NENU 11:38 → EMEROO 11:38 → 3NENU 15:56 → SUATTDRO 16:54
PROVIDERS: ADMIT Family Medicine; ATTEND Internal Medicine